=== PATIENT | female | born 1995 | race American Indian/Alaskan Native ===

== ENCOUNTER 2018-01-15 19:52 | Emergency (ER) | payer SELFPAY ==
[2018-01-15] MEDS ORDERED: PEPCID IV ONE ×2 (20:02→20:22)
[2018-01-15] MEDS ORDERED: DELTASONE ONE (20:03)
[2018-01-15] MEDS ORDERED: BENADRYL ONE (20:04)
[2018-01-15 20:22] VITALS: BP 113/86
[2018-01-15] MEDS ORDERED: BENADRYL IV ONE (20:22)
[2018-01-15] MEDS ORDERED: DELTASONE PO ONE (20:23)
[2018-01-15] MEDS ORDERED: DUONEB *Not for PRN Use IH ONE (20:24)
== END 2018-01-15 22:05 | disposition left against medical advice (07) ==
LOC: ED 19:52
DX: J45.909 Unspecified asthma, uncomplicated (principal); Z53.21 Procedure and treatment not carried out due to patient leaving prior to being seen by health care provider
CPT/HCPCS: J1200; J7512

== ENCOUNTER 2018-12-10 01:32 | Emergency (ER) | payer SELFPAY ==
[2018-12-10] MEDS ORDERED: NACL 0.9% 1000 ML 1,000 ML IV ONE (01:59)
[2018-12-10] MEDS ORDERED: GEODON IM ONE (01:59)
[2018-12-10] MEDS ORDERED: MORPHINE IV ONE (01:59)
[2018-12-10] MEDS ORDERED: ZOFRAN IV ONE (01:59)
[2018-12-10] MEDS ORDERED: TORADOL IV ONE (01:59)
[2018-12-10] MEDS ORDERED: BENTYL IM ONE (02:00)
[2018-12-10 02:23] LABS: Basophils % (Auto) 0.4 % (0.0-1.8); Eosinophils # (Auto) 0.1 K/mm3 (0.0-0.4); Eosinophils % (Auto) 1.6 % (0.0-4.3); Hematocrit 27.6 % (30.3-42.9); Lymphocytes # (Auto) 1.8 K/mm3 (1.2-5.4); Lymphocytes % (Auto) 28.4 % (13.4-35.0); Mean Corpuscular HGB Conc 32 % (30-34); Monocytes # (Auto) 0.5 K/mm3 (0.0-0.8); Monocytes % (Auto) 7.5 % (0.0-7.3); Platelet Count 247 K/mm3 (140-440); Red Blood Count 4.02 M/mm3 (3.65-5.03); Red Cell Distribution Width 19.2 % (13.2-15.2)
[2018-12-10 02:25] LABS: Mean Corpuscular Volume 69 fl (79-97)
[2018-12-10 02:34] LABS: Alanine Aminotransferase 6 units/L (7-56); Albumin 4.1 g/dL (3.9-5); BUN/Creatinine Ratio 24; Blood Urea Nitrogen 12 mg/dL (7-17); Calcium 9.4 mg/dL (8.4-10.2); Hemolysis Index 6
--- NOTE | 2018-12-10 04:05 | Cat Scan Report ---
EXAM: CT ABDOMEN PELVIS W CON HISTORY: worsening abd pain TECHNIQUE: Spiral axial CT images are obtained through the abdomen and pelvis without the administrat ion of oral contrast and with the administration of intravenous contrast. Additional coronal and sagi ttal reformatted images are reconstructed. COMPARISON: None available. FINDINGS: GASTROINTESTINAL TRACT: Nonspecific, fluid-filled, nondilated small bowel loops within the lower abdo men and pelvis; possible enteritis. Clinical correlation is advised. There are no stigmata of bowel obstruction, colitis or diverticulitis. A normal-appearing appendix is seen. GENITOURINARY SYSTEM: The kidneys are unremarkable. There is no ureteral calculus or stigmata of obst ructive uropathy. The urinary bladder is grossly unremarkable for a non-dedicated exam. CT ABDOMEN: The liver, spleen, pancreas, adrenal glands, gallbladder, aorta, and inferior vena cava a re within normal limits for a noncontrast CT scan. There is no intra-abdominal or retroperitoneal ly mphadenopathy, free fluid, or free air seen. No abdominal herniation is noted. CT PELVIS: Retroverted uterus. There is a small amount of fluid within endometrial cavity; rule out p hysiologic change. No gross adnexal mass lesion is seen. The visualized bony structures are within no rmal limits. No pelvic sidewall or inguinal lymphadenopathy is seen. No inguinal herniation is note d. No free fluid or free air is seen. LUNG BASES: The lung bases are clear. IMPRESSION: 1. Nonspecific, fluid-filled, nondilated small bowel loops within the lower abdomen and pelvis; poss ible enteritis. Clinical correlation is advised. 2. No evidence for acute appendicitis, bowel obstruction, colitis or diverticulitis seen. 3. No evidence for renal stone disease or obstructive uropathy. 4. No free fluid, free air, mass lesions, or lymphadenopathy seen. 5. Retroverted uterus. 6. Small amount of fluid within endometrial cavity; rule out physiologic change. No gross adnexal ma ss lesion is seen. This document is electronically signed by Michael Mak MD., December 10 2018 04:04:05 AM ET
--- NOTE | 2018-12-10 04:33 | Emergency Department Report ---
ED Abdominal Pain HPI - General Chief Complaint: Abdominal Pain Stated Complaint: ABD PAIN/ASTHMA Time Seen by Provider: 12/10/18 01:50 Source: patient Mode of arrival: Ambulatory Limitations: No Limitations - History of Present Illness Initial Comments: Patient is a 23-year-old female who is here secondary to abdominal pain for last 4 days. Patient states she was seen at [place] 2 days ago and had no improvement. Patient states that they would diagnose her with constipation. Patient had a bowel movement in 4 days. Patient states that the pain is a 10 out of 10 in severity and diffuse and states that she can't sit still because of the pain. Location: diffuse Radiation: none Severity scale (0 -10): 10 Quality: cramping Consistency: constant Improves With: nothing Worsens With: nothing Associated Symptoms: nausea, vomiting. denies: diarrhea, fever, chills, constipation, dysuria, hematemesis, hematochezia, melena, hematuria, syncope - Related Data Previous Rx's Medication Instructions Recorded Last Taken Type Dicyclomine [Bentyl] 20 mg PO QID #10 tablet 12/10/18 Unknown Rx Ondansetron [Zofran Odt] 4 mg PO Q8HR #10 tab.rapdis 12/10/18 Unknown Rx traMADol [Ultram] 50 mg PO Q6HR PRN #12 tablet 12/10/18 Unknown Rx Allergies Allergy/AdvReac Type Severity Reaction Status Date / Time No Known Allergies Allergy Verified 01/15/18 19:59 ED Review of Systems ROS: Stated complaint: ABD PAIN/ASTHMA Other details as noted in HPI Comment: All other systems reviewed and negative ED Past Medical Hx - Past Medical History Previous Medical History?: Yes Hx Asthma: Yes - Surgical History Past Surgical History?: Yes - Social History Smoking Status: Never Smoker Substance Use Type: None - Medications Home Medications: Home Medications Medication Instructions Recorded Confirmed Last Taken Type Dicyclomine [Bentyl] 20 mg PO QID #10 tablet 12/10/18 Unknown Rx Ondansetron [Zofran Odt] 4 mg PO Q8HR #10 tab.rapdis 12/10/18 Unknown Rx traMADol [Ultram] 50 mg PO Q6HR PRN #12 tablet 12/10/18 Unknown Rx ED Physical Exam - General Limitations: No Limitations General appearance: alert, in distress - Head Head exam: Present: atraumatic, normocephalic - Eye Eye exam: Present: normal appearance, PERRL, EOMI - ENT ENT exam: Present: mucous membranes moist - Neck Neck exam: Present: normal inspection - Respiratory Respiratory exam: Present: normal lung sounds bilaterally. Absent: respiratory distress, wheezes, rales, rhonchi - Cardiovascular Cardiovascular Exam: Present: regular rate, normal rhythm. Absent: systolic murmur, diastolic murmur, rubs, gallop - GI/Abdominal GI/Abdominal exam: Present: soft, tenderness (diffuse), normal bowel sounds. Absent: distended, guarding, rebound, rigid - Extremities Exam Extremities exam: Present: normal inspection - Back Exam Back exam: Present: normal inspection - Neurological Exam Neurological exam: Present: alert, oriented X3 - Psychiatric Psychiatric exam: Present: normal affect, normal mood - Skin Skin exam: Present: warm, dry, intact, normal color. Absent: rash ED Course Vital Signs 12/10/18 12/10/18 12/10/18 01:39 01:48 02:00 Temperature 97.9 F Pulse Rate 98 H 106 H 85 Respiratory 18 17 20 Rate Blood Pressure 106/45 116/60 O2 Sat by Pulse 100 89 100 Oximetry 12/10/18 12/10/18 12/10/18 02:20 02:21 03:13 Temperature Pulse Rate 91 H Respiratory 20 20 16 Rate Blood Pressure 116/60 O2 Sat by Pulse 100 100 Oximetry ED Medical Decision Making - Lab Data Result diagrams: 12/10/18 02:00 12/10/18 02:00 Lab Results 12/10/18 12/10/18 12/10/18 Range/Units 02:00 02:00 02:00 WBC 6.2 (4.5-11.0) K/mm3 RBC 4.02 (3.65-5.03) M/mm3 Hgb 9.0 L (10.1-14.3) gm/dl Hct 27.6 L (30.3-42.9) % MCV 69 L (79-97) fl MCH 22 L (28-32) pg MCHC 32 (30-34) % RDW 19.2 H (13.2-15.2) % Plt Count 247 (140-440) K/mm3 Lymph % (Auto) 28.4 (13.4-35.0) % [place] % (Auto) 7.5 H (0.0-7.3) % Eos % (Auto) 1.6 (0.0-4.3) % Baso % (Auto) 0.4 (0.0-1.8) % Lymph # 1.8 (1.2-5.4) K/mm3 [place] # 0.5 (0.0-0.8) K/mm3 Eos # 0.1 (0.0-0.4) K/mm3 Baso # 0.0 (0.0-0.1) K/mm3 Seg Neutrophils % 62.1 (40.0-70.0) % Seg Neutrophils # 3.9 (1.8-7.7) K/mm3 Sodium 139 (137-145) mmol/L Potassium 3.9 (3.6-5.0) mmol/L Chloride 102.3 (98-107) mmol/L Carbon Dioxide 23 (22-30) mmol/L Anion Gap 18 mmol/L BUN 12 (7-17) mg/dL Creatinine 0.5 L (0.7-1.2) mg/dL Estimated GFR > 60 ml/min BUN/Creatinine Ratio 24 % Glucose 89 (65-100) mg/dL Calcium 9.4 (8.4-10.2) mg/dL Total Bilirubin 0.40 (0.1-1.2) mg/dL AST 14 (5-40) units/L ALT 6 L (7-56) units/L Alkaline Phosphatase 52 (35-129) units/L Total Protein 7.3 (6.3-8.2) g/dL Albumin 4.1 (3.9-5) g/dL Albumin/Globulin Ratio 1.3 % Lipase 19 (13-60) units/L HCG, Qual Negative (Negative) - Radiology Data CT of abdomen and pelvis with IV contrast shows nonspecific fluid-filled nondilated small bowel loops within the lower abdomen and pelvis consistent with possible enteritis. There is no evidence of acute appendicitis bowel obstruction and colitis or diverticulitis seen. There is no renal stones or obstructive uropathy present. - Medical Decision Making Patient was standing on the bed when I went in to see originally. After fluids and pain medications patient is resting comfortably. She states her stomach does feel much improved. Patient be started on Ultram Bentyl and Zofran. Critical care attestation.: If time is entered above; I have spent that time in minutes in the direct care of this critically ill patient, excluding procedure time. ED Disposition Clinical Impression: Viral enteritis Disposition: - TO HOME OR SELFCARE Is pt being admited?: No Does the pt Need Aspirin: No Condition: Stable Instructions: Abdominal Pain (ED) Referrals: CHRISTINE MAYFIELD MD [Primary Care Provider] - 3-5 Days Time of Disposition: 04:34
[2018-12-10 05:31] VITALS: BP 100/62
== END 2018-12-10 05:43 | disposition home or self-care (01) ==
LOC: ED 01:32
DX: A08.4 Viral intestinal infection, unspecified (principal); J45.909 Unspecified asthma, uncomplicated
CPT/HCPCS: 36415; 74177; 80053; 83690; 84703; 85025; 96361; 96372; 96374; 96375; 99284; J0500; J1885; J2270; J2405; J3486; J7030; Q9967